=== PATIENT | female | born 1960 | race Caucasian/White ===

== ENCOUNTER 2023-03-20 07:31 | Outpatient (AMB) | payer OTHER, SELFPAY ==
[2023-03-20 07:35] VITALS: BP 106/68; PULSE 75; O2SAT 97; BMI 32.9
--- NOTE | 2023-03-20 07:35 | A.OFFPC_ITS ---
Vital Signs 03/20/23 07:35 Height 5 ft 5 in Weight 198 lb BMI 32.9 BP 106/68 Blood Pressure Location Lt brachial Position Sitting Pulse 75 Pulse Source Pulse Oximeter Pulse Oximetry (%) 97 Oxygen Delivery Method Room Air Intake Visit Reasons: Annual PE Intake Note: Pt is here today for PE. Allergies amoxicillin [Augmentin] Allergy (Unknown, Verified 03/20/23 07:37) sensitivity aspirin Allergy (Unknown, Verified 03/20/23 07:37) sensitivity clavulanic acid [Augmentin] Allergy (Unknown, Verified 03/20/23 07:37) sensitivity iodine Allergy (Unknown, Verified 03/20/23 07:37) topical burn skin and contrast caused rash Sulfa (Sulfonamide Antibiotics) Allergy (Unknown, Verified 03/20/23 07:37) hives rash on neck face ibuprofen Adverse Reaction (Verified 03/20/23 07:37) feels heat sensation Cefazolin in D5W Allergy (Unknown, Uncoded 03/20/23 07:37) hives Medication List - Last Reconciled 03/20/23 by Payal Torres MD ascorbate calcium (vitamin C) 500 mg PO DAILY cholecalciferol (vitamin D3) 50 mcg PO DAILY fluticasone propionate 50 mcg/actuation 0 mcg intranasal multivit with min-folic acid 0.4 mg (Adult One Daily Multivitamin) tabs PO omega-3 fatty acids (Fish Oil Concentrate) 1,000 mg PO DAILY pravastatin 20 mg PO DAILY Saccharomyces boulardii (Daily Probiotic (S. boulardii)) 250 mg PO DAILY Tobacco use date assessed: 03/20/23 Fall risk assessment: No Falls in past year Last assessed Fall Risk: 03/20/23 Dental Screening Dental Screen Date: 03/20/23 Did you have a dental visit in the last 12 months?: Yes Did you have a dental problem in the last 6 months where you did not have access to dental care?: No Was dental information given to patient?: Patient has dentist HPI Annual PE HPI Details Pt is for PE. PFSH Medical History (Updated 03/20/23 @ 08:30 by Payal Torres MD) Annual physical exam Bunion of great toe of right foot Cellulitis Hx of bone density study Hyperglycemia Hyperlipidemia Muscle strain Nephrolithiasis Osteoporosis Overweight Sleep apnea Surgical History (Updated 03/20/23 @ 08:18 by Payal Torres MD) H/O colonoscopy H/O left wrist surgery H/O prior ablation treatment History of lithotripsy History of surgery Family History Father HTN (hypertension) Pacemaker High cholesterol Mother No problems noted. Sister Myocardial infarction Social History Housing: House Alcohol intake: never Patient Tobacco Use Status: Never used Tobacco e-Cigarette/Vaping Use: Never Used Current occupational status: employed Cognitive needs: No Hearing needs: No Vision needs: Yes Questionnaire Thrive Questionnaire Date Thrive assessed: 08/20/22 AUDIT C Alcohol Use Questionnaire (AUDIT-C) 1. How often do you have a drink containing alcohol?: Never 3. How often do you have six or more drinks on one occasion?: Never Total Score: 0 VERO-7 AMB Questionnaire VERO-7 Date VERO - 7 assessed: 08/20/22 Source: Developed by Drs. Tremaine Gomez, Myriam Leiva, Prabhjot Braun and colleagues, with an educational terri from [employer]. Review of Systems Const All systems reviewed & are unremarkable except as noted in HPI and below Reports no additional complaints Eyes Reports no additional complaints ENT Reports no additional complaints Card Reports no additional complaints Resp Reports no additional complaints GI Reports no additional complaints Reports no additional complaints Physical exam (Primary Care) Vital Signs: Last Vital Signs Pulse 75 03/20/23 07:35 BP 106/68 03/20/23 07:35 Pulse Ox 97 03/20/23 07:35 Oxygen Delivery Method Room Air 03/20/23 07:35 BMI result Body Mass Index 32.9 Tobacco/Smoking Status: Tobacco use Status Tobacco use date assessed 03/20/23 03/20/23 07:42 Patient Tobacco Use Status Never used Tobacco 03/20/23 07:42 e-Cigarette/Vaping Use Never Used 03/20/23 07:42 Thrive Assessment: Date of Thrive Assessment Date Thrive assessed 08/20/22 03/20/23 07:42 Const General: no acute distress HENMT Head: Yes normal to inspection Ears: hearing grossly normal bilaterally Mouth: Normal oral and palatal mucosa present Throat: Yes posterior oropharynx normal Eyes General: appearance normal, both eyes and all related structures Neck Neck: Yes no lymphadenopathy and Yes supple Resp Effort & Inspection: normal respiratory effort Auscultation: clear to auscultation bilaterally Cardio Rhythm: regular rhythm Heart sounds: S1 normal heart sound present and S2 normal heart sound present GI Inspection: Yes normal to inspection Palpation (GI): Soft to palpation Auscultation: normal bowel sounds Assessment and Plan Assessment & Plan (1) Hyperglycemia: Code(s): R73.9 - Hyperglycemia, unspecified Plan: cont ADA dietm exercise, f/u 1 yr check A1C (2) Hyperlipidemia: Code(s): E78.5 - Hyperlipidemia, unspecified Plan: cont statin (3) Annual physical exam: Code(s): Z00.00 - Encounter for general adult medical examination without abnormal findings Plan: well balanced diet, exercise, weight loss discussed (4) Osteoporosis: Comment: DEXA 2018 [facility] T score -2.6 spine Code(s): M81.0 - Age-related osteoporosis without current pathological fracture (5) Status post partial colectomy: Comment: recurrent diverticulitis 2022, flex sigmoidoscopy negative, recheck colonoscopy in 5 yrs Code(s): Z90.49 - Acquired absence of other specified parts of digestive tract Orders: Orders Comprehensive [place]. Panel Fast 365 Days E55.9 - Vitamin D deficiency, unspecified, E78.5 - Hyperlipidemia, unspecified, M81.0 - Age-related osteoporosis without current pathological fracture, R73.9 - Hyperglycemia, unspecified, Z00.00 - Encounter for general adult medical examination without abnormal findings Hemoglobin A1c 365 Days E55.9 - Vitamin D deficiency, unspecified, E78.5 - Hyperlipidemia, unspecified, M81.0 - Age-related osteoporosis without current pathological fracture, R73.9 - Hyperglycemia, unspecified, Z00.00 - Encounter for general adult medical examination without abnormal findings TSH reflex Free T4 365 Days E55.9 - Vitamin D deficiency, unspecified, E78.5 - Hyperlipidemia, unspecified, M81.0 - Age-related osteoporosis without current pathological fracture, R73.9 - Hyperglycemia, unspecified, Z00.00 - Encounter for general adult medical examination without abnormal findings Vitamin D 25-OH Total 365 Days E55.9 - Vitamin D deficiency, unspecified, E78.5 - Hyperlipidemia, unspecified, M81.0 - Age-related osteoporosis without current pathological fracture, R73.9 - Hyperglycemia, unspecified, Z00.00 - Encounter for general adult medical examination without abnormal findings Microalbumin, Random (w Creat) 365 Days E55.9 - Vitamin D deficiency, unspecified, E78.5 - Hyperlipidemia, unspecified, M81.0 - Age-related osteoporosis without current pathological fracture, R73.9 - Hyperglycemia, unspecified, Z00.00 - Encounter for general adult medical examination without abnormal findings Complete Blood Count Man Dif 365 Days E55.9 - Vitamin D deficiency, unspecified, E78.5 - Hyperlipidemia, unspecified, M81.0 - Age-related osteoporosis without current pathological fracture, R73.9 - Hyperglycemia, unspecified, Z00.00 - Encounter for general adult medical examination without abnormal findings Coding Level of Care Code Est Pt Prev Care 40-64y(26329) Diagnoses Hyperglycemia R73.9 Hyperlipidemia E78.5 Annual physical exam Z00.00 Osteoporosis M81.0 Status post partial colectomy Z90.49
== END 2023-03-20 08:16 | disposition home or self-care (01) ==
PROVIDERS: PCP Internal Medicine; Visit Provider Internal Medicine
DX: Z00.00 Encounter for general adult medical examination without abnormal findings (principal); R73.9 Hyperglycemia, unspecified; E78.5 Hyperlipidemia, unspecified; Z90.49 Acquired absence of other specified parts of digestive tract; M81.0 Age-related osteoporosis without current pathological fracture
CPT/HCPCS: 99396

== ENCOUNTER 2023-09-16 09:13 | Outpatient (AMB) | payer OTHER, SELFPAY ==
[2023-09-16 09:22] VITALS: BP 118/72; PULSE 82; O2SAT 97; BMI 35.9
--- NOTE | 2023-09-16 09:22 | A.OFFPC_ITS ---
Vital Signs 09/16/23 09:22 Height 5 ft 5 in Weight 216 lb BMI 35.9 BP 118/72 Blood Pressure Location Lt brachial Position Sitting Pulse 82 Pulse Source Pulse Oximeter Pulse Oximetry (%) 97 Oxygen Delivery Method Room Air Intake Visit Reasons: [facility], [facility] in [facility] Intake Note: Pt is here today for a pre op visit. Pt is having L foot removal of hardware surgery on 10/06/23. Allergies amoxicillin [Augmentin] Allergy (Unknown, Verified 09/16/23 09:26) sensitivity aspirin Allergy (Unknown, Verified 09/16/23 09:26) sensitivity clavulanic acid [Augmentin] Allergy (Unknown, Verified 09/16/23 09:) sensitivity iodine Allergy (Unknown, Verified 09/16/23 09:) topical burn skin and contrast caused rash Sulfa (Sulfonamide Antibiotics) Allergy (Unknown, Verified 09/16/23 09:) hives rash on neck face ibuprofen Adverse Reaction (Verified 09/16/23 09:) feels heat sensation Cefazolin in D5W Allergy (Unknown, Uncoded 09/16/23 09:26) hives Medication List - Last Reconciled 09/16/23 by Payal Torres MD ascorbate calcium (vitamin C) 500 mg PO DAILY cholecalciferol (vitamin D3) 50 mcg PO DAILY docusate sodium (Stool Softener) 50 mg PO DAILY doxycycline hyclate 100 mg PO BID fluticasone propionate 50 mcg/actuation 0 mcg intranasal mupirocin 2% 1 appl topical BID pravastatin 20 mg PO DAILY Saccharomyces boulardii (Daily Probiotic (S. boulardii)) 250 mg PO DAILY Tobacco use date assessed: 09/16/23 Fall risk assessment: No Falls in past year Last assessed Fall Risk: 09/16/23 Dental Screening Dental Screen Date: 09/16/23 Did you have a dental visit in the last 12 months?: Yes Did you have a dental problem in the last 6 months where you did not have access to dental care?: No Was dental information given to patient?: Patient has dentist HPI [facility], [facility] in [facility] HPI Details Pt presents for pre op for L foot surgery. Pt c/o recurrent rash, diagnosed before as MRSA infection on upper chest and started taking Doxycycline 2 days ago. Patient denies fever chills any change in cosmetics or laundry detergent exposure to animals. Hyperlipidemia is controlled on pravastatin. Patient denies exertional chest pain shortness for breath palpitations. [facility] Medical History Muscle strain Cellulitis Bunion of great toe of right foot Overweight Hyperglycemia Hyperlipidemia Annual physical exam Nephrolithiasis Hx of bone density study Osteoporosis Sleep apnea Surgical History H/O colonoscopy H/O prior ablation treatment H/O left wrist surgery History of surgery History of lithotripsy Family History Father HTN (hypertension) Pacemaker High cholesterol Mother No problems noted. Sister Myocardial infarction Social History Housing: House Alcohol intake: never Patient Tobacco Use Status: Never used Tobacco e-Cigarette/Vaping Use: Never Used Current occupational status: employed Cognitive needs: No Hearing needs: No Vision needs: Yes Questionnaire Thrive Questionnaire Date Thrive assessed: 08/20/22 AUDIT C Alcohol Use Questionnaire (AUDIT-C) 1. How often do you have a drink containing alcohol?: Never 3. How often do you have six or more drinks on one occasion?: Never Total Score: 0 VERO-7 AMB Questionnaire VERO-7 Date VERO - 7 assessed: 08/20/22 Source: Developed by Drs. Tremaine Gomez, Myriam Leiva, Prabhjot Braun and colleagues, with an educational terri from [employer]. Review of Systems Const All systems reviewed & are unremarkable except as noted in HPI and below Reports no additional complaints Eyes Reports no additional complaints ENT Reports no additional complaints Card Reports no additional complaints Resp Reports no additional complaints GI Reports no additional complaints Reports no additional complaints Physical exam (Primary Care) Vital Signs: Last Vital Signs Pulse 82 09/16/23 09:22 BP 118/72 09/16/23 09:22 Pulse Ox 97 09/16/23 09:22 Oxygen Delivery Method Room Air 09/16/23 09:22 BMI result Body Mass Index 35.9 Tobacco/Smoking Status: Tobacco use Status Tobacco use date assessed 09/16/23 09/16/23 09:29 Patient Tobacco Use Status Never used Tobacco 09/16/23 09:29 e-Cigarette/Vaping Use Never Used 09/16/23 09:22 Thrive Assessment: Date of Thrive Assessment Date Thrive assessed 08/20/22 09/16/23 09:22 Const General: no acute distress HENMT Head: Yes normal to inspection General nose exam: Normal external nose present Face and sinus: Yes normal facial exam Neck Other: There is erythematous papular rash on the upper chest Neck: Yes no lymphadenopathy and Yes supple Resp Effort & Inspection: normal respiratory effort Auscultation: clear to auscultation bilaterally Cardio Rhythm: regular rhythm Heart sounds: S1 normal heart sound present and S2 normal heart sound present GI Inspection: Yes normal to inspection Palpation (GI): Soft to palpation Percussion: Yes normal to percussion Auscultation: normal bowel sounds Assessment and Plan Assessment & Plan (1) MRSA infection: Code(s): A49.02 - Methicillin resistant Staphylococcus aureus infection, unspecified site Plan: Continue doxycycline for 10 days and mupirocin nasal ointment was prescribed for 5 days for MRSA eradication. Patient was advised to use antibacterial soap or chlorhexidine body wash (2) Bunion of great toe of right foot: Comment: S/P SURGERY Code(s): M21.611 - Bunion of right foot Plan: Patient is medically cleared for right foot surgery hardware removal Medications: New mupirocin 2% Apply 0.5 gm in each nostril bid for 5 days 1 appl topical BID 15 grams 0RF doxycycline hyclate 100 mg PO BID 8 caps 0RF Coding Level of Care Code Est Pt Level 3 (40591) Diagnoses MRSA infection A49.02 Bunion of great toe of right foot M21.611
== END 2023-09-16 10:17 | disposition home or self-care (01) ==
PROVIDERS: PCP Internal Medicine; Visit Provider Internal Medicine
DX: A49.02 Methicillin resistant Staphylococcus aureus infection, unspecified site (principal); M21.611 Bunion of right foot
CPT/HCPCS: 99213

== ENCOUNTER 2024-02-17 06:32 | Outpatient (REF) | payer MEDICARE, SELFPAY ==
[2024-02-17 10:21] LABS: Baso%MD 0.4 %; Hematocrit 45.7 % (37.0-47.0); IG%MD 0.2 %; Mean Corpuscular HGB Conc 32.8 g/dl (31.0-35.0); Mean Corpuscular Hemoglobin 30.1 pg (27.0-33.0); Mean Corpuscular Volume 91.6 fL (80.0-98.0); Mean Platelet Volume 10.6 fL (9.4-12.3); Mono%MD 8.1 %; Neut%MD 41.3 %; Platelet Count 302 X10*3/uL (160-400); Red Blood Count 4.99 X10*6/uL (4.20-5.50); Red Cell Distribution Width 12.5 % (11.0-16.0); White Blood Count 5.3 X10*3/uL (4.8-10.8)
[2024-02-17 10:32] LABS: Estimated Average Glucose 120 mg/dL; Hemoglobin A1c % 5.8 % (<6.0)
[2024-02-17 10:59] LABS: Creatinine Urine 66.53 mg/dL
[2024-02-17 11:15] LABS: Alanine Aminotransferase 29 U/L (0-31); Albumin Level 4.4 g/dL (3.5-5.0); Alkaline Phosphatase 63 U/L (39-117); Anion Gap 14 (12-20); Aspartate Amino Transferase 19 U/L (5-31); Bilirubin Total 0.5 mg/dL (0.0-1.0); Blood Urea Nitrogen 11 mg/dL (9-16); Calcium 9.5 mg/dL (8.4-10.2); Carbon Dioxide 26 mmol/L (22-29); Chloride 106 mmol/L (96-108); Estimated Glomerular Filt Rate > 60; Glucose Fasting 124 mg/dL (60-99); Potassium 4.3 mmol/L (3.3-5.1); Sodium 142 mmol/L (135-145); TSH reflex Free T4 0.79 uIU/mL (0.32-4.0); Total Protein 8.1 g/dL (6.5-8.0); Vitamin D 25-OH Total 70.4 ng/mL (>30)
[2024-02-17 11:22] LABS: Band Neutrophils Percent 1 % (3-5); Basophils Abs Manual 0.1 X10*3/uL (0.0-0.2); Basophils Percent Manual 1 % (0-2); Eosinophils Absolute Manual 0.3 X10*3/uL (0.0-0.4); Eosinophils Percent Manual 6 % (0-4); Lymphocytes Absolute Manual 2.3 X10*3/uL (1.2-4.9); Lymphocytes Percent Manual 43 % (20-40); Monocytes Absolute Manual 0.4 X10*3/uL (0.1-1.2); Monocytes Percent Manual 8 % (2-11); Neutrophils Absolute Manual 2.2 X10*3/uL (2.0-8.3); Neutrophils Percent Manual 41 % (45-73)
[2024-02-17 11:24] LABS: Platelet Estimate NORMAL (NORMAL); Platelet Morphology Comment NORMAL; RBC Morphology NORMAL
== END 2024-02-17 06:33 | disposition home or self-care (01) ==
LOC: HO.HMGCLDS 06:32
PROVIDERS: PCP Internal Medicine; Visit Provider Internal Medicine
DX: Z00.00 Encounter for general adult medical examination without abnormal findings (principal); R73.9 Hyperglycemia, unspecified; E78.5 Hyperlipidemia, unspecified; M81.0 Age-related osteoporosis without current pathological fracture; E55.9 Vitamin D deficiency, unspecified
CPT/HCPCS: 36415; 80053; 82043; 82306; 82570; 83036; 84443; 85007; 85027

== ENCOUNTER 2024-03-22 06:11 | Outpatient (REF) | payer MEDICARE, SELFPAY ==
[2024-03-22 10:24] LABS: Alanine Aminotransferase 27 U/L (0-31); Albumin Level 4.3 g/dL (3.5-5.0); Alkaline Phosphatase 60 U/L (39-117); Anion Gap 13 (12-20); Aspartate Amino Transferase 21 U/L (5-31); Bilirubin Total 0.6 mg/dL (0.0-1.0); Blood Urea Nitrogen 15 mg/dL (9-16); Calcium 9.1 mg/dL (8.4-10.2); Carbon Dioxide 26 mmol/L (22-29); Chloride 106 mmol/L (96-108); Cholesterol 191 mg/dL (<200); Estimated Glomerular Filt Rate > 60; Glucose Fasting 117 mg/dL (60-99); HDL Cholesterol 42 mg/dL (>40); LDL Cholesterol Calculated 110 mg/dL (<100); Potassium 4.5 mmol/L (3.3-5.1); Sodium 140 mmol/L (135-145); Total Protein 7.7 g/dL (6.5-8.0); Triglycerides 195 mg/dL (<150)
== END 2024-03-22 06:12 | disposition home or self-care (01) ==
LOC: HO.HMGCLDS 06:11
PROVIDERS: PCP Internal Medicine; Visit Provider Internal Medicine
DX: Z00.00 Encounter for general adult medical examination without abnormal findings (principal); E78.5 Hyperlipidemia, unspecified
CPT/HCPCS: 36415; 80053; 80061

== ENCOUNTER 2024-03-25 07:34 | Outpatient (AMB) | payer MEDICARE, SELFPAY ==
[2024-03-25 07:36] VITALS: BP 118/72; PULSE 71; O2SAT 96; BMI 33.9
--- NOTE | 2024-03-25 07:36 | MHC.PC.OV ---
Vital Signs 03/25/24 07:36 Height 5 ft 5 in Weight 204 lb BMI 33.9 BP 118/72 Blood Pressure Location Lt brachial Position Sitting Pulse 71 Pulse Source Pulse Oximeter Pulse Oximetry (%) 96 Oxygen Delivery Method Room Air Intake Visit Reasons: Annual PE - see comment Intake Note: Pt is here today for PE. Allergies amoxicillin [Augmentin] Allergy (Unknown, Verified 03/25/24 07:47) sensitivity aspirin Allergy (Unknown, Verified 03/25/24 07:47) sensitivity clavulanic acid [Augmentin] Allergy (Unknown, Verified 03/25/24 07:47) sensitivity iodine Allergy (Unknown, Verified 03/25/24 07:47) topical burn skin and contrast caused rash Sulfa (Sulfonamide Antibiotics) Allergy (Unknown, Verified 03/25/24 07:47) hives rash on neck face ibuprofen Adverse Reaction (Verified 03/25/24 07:47) feels heat sensation Cefazolin in D5W Allergy (Unknown, Uncoded 03/25/24 07:47) hives Medication List - Last Reconciled 03/25/24 by Payal Torres MD ascorbate calcium (vitamin C) 500 mg PO DAILY cholecalciferol (vitamin D3) 50 mcg PO DAILY docusate sodium (Stool Softener) 50 mg PO DAILY fluticasone propionate 50 mcg/actuation 0 mcg intranasal mupirocin 2% 1 appl topical BID pravastatin 20 mg PO DAILY Saccharomyces boulardii (Daily Probiotic (S. boulardii)) 250 mg PO DAILY Tobacco use date assessed: 03/25/24 Fall risk assessment: No Falls in past year Last assessed Fall Risk: 03/25/24 Dental Screening Dental Screen Date: 03/25/24 Did you have a dental visit in the last 12 months?: Yes Did you have a dental problem in the last 6 months where you did not have access to dental care?: No Was dental information given to patient?: Patient has dentist HPI Annual PE - see comment HPI Details Pt presents for PE. PFSH Medical History (Updated 03/25/24 @ 08:11 by Payal Torres MD) Muscle strain Cellulitis Bunion of great toe of right foot Overweight Hyperglycemia Hyperlipidemia Annual physical exam Nephrolithiasis Hx of bone density study Osteoporosis Sleep apnea Surgical History H/O colonoscopy H/O prior ablation treatment H/O left wrist surgery History of surgery History of lithotripsy Family History Father HTN (hypertension) Pacemaker High cholesterol Mother No problems noted. Sister Myocardial infarction Social History Housing: House Alcohol intake: never Patient Tobacco Use Status: Never used Tobacco e-Cigarette/Vaping Use: Never Used service: No Current occupational status: employed Cognitive needs: No Hearing needs: No Vision needs: Yes Questionnaire PHQ-9 Over the last 2 weeks, how often have you been bothered by any of the following problems? 1. Little interest or pleasure in doing things: not at all 2. Feeling down, depressed, or hopeless: not at all 3. Trouble falling or staying asleep, or sleeping too much: not at all 4. Feeling tired or having little energy: not at all 5. Poor appetite or overeating: not at all 6. Feeling bad about yourself - or that you are a failure or have let yourself or your family down: not at all 7. Trouble concentrating on things, such as reading the newspaper or watching television: not at all 8. Moving or speaking so slowly that other people could have noticed. Or the opposite - being so fidgety or restless that you have been moving around a lot more than usual: not at all 9. Thoughts that you would be better off or of hurting yourself in some way: not at all Total score: 0 Depression Screening Interpretation: Negative Depression Screening Done: Yes Source: Developed by Drs. Tremaine Gomez, Myriam Leiva, Prabhjot Braun and colleagues, with an educational terri from [employer]. Thrive Questionnaire Date Thrive assessed: 03/25/24 I am a: Patient What is your living situation today?: I have a steady place to live Within the past 12 months, did the food you bought not last and you didn't have the money to get more?: Never true Within the past 12 months, did you worry whether your food would run out before you got money to buy more?: Never true Do you have trouble paying for medicines?: No Do you have trouble getting transportation to medical appointments?: No Do you have trouble paying your heating and electricity bill?: No Do you have trouble taking care of your child, family member or friend?: No Do you have trouble with day-to-day activities such as bathing, preparing meals, shopping, managing finances, etc.?: No Are you currently unemployed and looking for a job?: No Are you interested in more education?: No Please select the resources that you would like help with: None THRIVE Score: 0 VERO-7 AMB Questionnaire VERO-7 Date VERO - 7 assessed: 03/25/24 Feeling nervous, anxious, or on edge: 0 = Not at all Not being able to stop or control worryin = Not at all Worrying too much about different things: 0 = Not at all Trouble relaxin = Not at all Being so restless that it is hard to sit still: 0 = Not at all Becoming easily annoyed or irritable: 0 = Not at all Feeling afraid as if something awful might happen: 0 = Not at all Total VERO-7 score (0-4 normal; 5-9 mild; 10-14 moderate; 15-21 severe): 0 Source: Developed by Drs. Tremaine Gomez, Myriam Leiva, Prabhjot Braun and colleagues, with an educational terri from [employer]. VERO-7 Assessment Billing VERO-7 Assessment Tool: VERO-7 Assessment 12367 Review of Systems Const All systems reviewed & are unremarkable except as noted in HPI and below Eyes Reports no additional complaints ENT Reports no additional complaints Card Reports no additional complaints Resp Reports no additional complaints GI Reports no additional complaints Reports no additional complaints Musc Reports no additional complaints Physical exam (Primary Care) Vital Signs: Last Vital Signs Pulse 71 03/25/24 07:36 BP 118/72 03/25/24 07:36 Pulse Ox 96 03/25/24 07:36 Oxygen Delivery Method Room Air 03/25/24 07:36 BMI result Body Mass Index 33.9 Tobacco/Smoking Status: Tobacco use Status Tobacco use date assessed 03/25/24 03/25/24 07:50 Patient Tobacco Use Status Never used Tobacco 03/25/24 07:36 e-Cigarette/Vaping Use Never Used 03/25/24 07:36 PHQ-9: PHQ-9 Score PHQ-9: Total score 0 03/25/24 07:51 Depression Screening Interpretation: Negative Thrive Assessment: Date of Thrive Assessment Date Thrive assessed 03/25/24 03/25/24 07:36 Const General: no acute distress HENMT Head: Yes normal to inspection Ears: hearing grossly normal bilaterally General nose exam: Normal external nose present Face and sinus: Yes normal facial exam Mouth: Normal oral and palatal mucosa present Throat: Yes posterior oropharynx normal Eyes General: appearance normal, both eyes and all related structures Neck Neck: Yes supple Resp Effort & Inspection: normal respiratory effort Auscultation: clear to auscultation bilaterally Cardio Rhythm: regular rhythm Heart sounds: S1 normal heart sound present and S2 normal heart sound present GI Inspection: Yes normal to inspection Palpation (GI): Soft to palpation Percussion: Yes normal to percussion Auscultation: normal bowel sounds Assessment and Plan Assessment & Plan (1) Hyperlipidemia: Code(s): E78.5 - Hyperlipidemia, unspecified Plan: cont Pravastatin (2) Annual physical exam: Code(s): Z00.00 - Encounter for general adult medical examination without abnormal findings Plan: Well-balanced diet regular exercise weight loss discussed with the patient. She is up-to-date with the mammogram, colonoscopy (3) Osteoporosis: Comment: DEXA 2018 [facility] T score -2.6 spine, took Fosamax , Forteo, Prolia last dose 8 yrs, DEXA q 2 yrs f/u Endo Code(s): M81.0 - Age-related osteoporosis without current pathological fracture Plan: Continue vitamin-D supplement follow-up with endocrinology at [facility] (4) Hyperglycemia: Code(s): R73.9 - Hyperglycemia, unspecified Plan: A1c is 5.8, ADA diet increase exercise weight loss discussed with the patient. Recheck A1c in 6 months Orders: Orders Comprehensive [place]. Panel Fast 1 Year E78.5 - Hyperlipidemia, unspecified, R73.9 - Hyperglycemia, unspecified, Z00.00 - Encounter for general adult medical examination without abnormal findings Lipid Panel 1 Year E78.5 - Hyperlipidemia, unspecified, R73.9 - Hyperglycemia, unspecified, Z00.00 - Encounter for general adult medical examination without abnormal findings Hemoglobin A1c 6 Months E78.5 - Hyperlipidemia, unspecified, R73.9 - Hyperglycemia, unspecified Hemoglobin A1c 1 Year E78.5 - Hyperlipidemia, unspecified, R73.9 - Hyperglycemia, unspecified, Z00.00 - Encounter for general adult medical examination without abnormal findings Complete Blood Count Auto Diff 1 Year E78.5 - Hyperlipidemia, unspecified, R73.9 - Hyperglycemia, unspecified, Z00.00 - Encounter for general adult medical examination without abnormal findings Microalbumin, Random (w Creat) 1 Year E78.5 - Hyperlipidemia, unspecified, R73.9 - Hyperglycemia, unspecified, Z00.00 - Encounter for general adult medical examination without abnormal findings Lipid Panel 6 Months E78.5 - Hyperlipidemia, unspecified, R73.9 - Hyperglycemia, unspecified Coding Level of Care Code Est Pt Prev Care >65y(88188) Diagnoses Hyperlipidemia E78.5 Annual physical exam Z00.00 Osteoporosis M81.0 Hyperglycemia R73.9 Additional Codes VERO-7 Assessment Billing - VERO-7 Assessment Tool: VERO-7 Assessment 50124 ([id number])
== END 2024-03-25 08:28 | disposition home or self-care (01) ==
PROVIDERS: PCP Internal Medicine; Visit Provider Internal Medicine
DX: Z00.00 Encounter for general adult medical examination without abnormal findings (principal); E78.5 Hyperlipidemia, unspecified; M81.0 Age-related osteoporosis without current pathological fracture; R73.9 Hyperglycemia, unspecified
CPT/HCPCS: 99397

== ENCOUNTER 2024-07-22 14:00 | Outpatient (AMB) | payer MEDICARE, SELFPAY ==
[2024-07-22 14:19] VITALS: BP 118/74; PULSE 94; O2SAT 98; BMI 37.4
--- NOTE | 2024-07-22 14:19 | MHC.PC.OV ---
Vital Signs 07/22/24 14:19 Height 5 ft 5 in Weight 225 lb BMI 37.4 BP 118/74 Blood Pressure Location Lt brachial Position Sitting Pulse 94 Pulse Source Pulse Oximeter Pulse Oximetry (%) 98 Oxygen Delivery Method Room Air Intake Visit Reasons: MRSA Intake Note: Pt is here today for a sick visit. Pt c/o MRSA. Allergies amoxicillin [Augmentin] Allergy (Unknown, Verified 07/22/24 14:32) sensitivity aspirin Allergy (Unknown, Verified 07/22/24 14:32) sensitivity clavulanic acid [Augmentin] Allergy (Unknown, Verified 07/22/24 14:32) sensitivity iodine Allergy (Unknown, Verified 07/22/24 14:32) topical burn skin and contrast caused rash Sulfa (Sulfonamide Antibiotics) Allergy (Unknown, Verified 07/22/24 14:32) hives rash on neck face mupirocin Allergy (Verified 07/22/24 14:33) Rash ibuprofen Adverse Reaction (Verified 07/22/24 14:32) feels heat sensation Cefazolin in D5W Allergy (Unknown, Uncoded 07/22/24 14:32) hives Medication List - Last Reconciled 07/22/24 by Payal Torres MD ascorbate calcium (vitamin C) 500 mg PO DAILY cholecalciferol (vitamin D3) 50 mcg PO DAILY docusate sodium (Stool Softener) 50 mg PO DAILY doxycycline monohydrate 100 mg PO BID fluticasone propionate 50 mcg/actuation 0 mcg intranasal pravastatin 20 mg PO DAILY Saccharomyces boulardii (Daily Probiotic (S. boulardii)) 250 mg PO DAILY Tobacco use date assessed: 07/22/24 Dental Screening Dental Screen Date: 03/25/24 HPI MRSA HPI Details Patient presents complaining of a rash on her left side of the neck. She had similar rash last year and was treated for MRSA. Maribel rash rule out occurred 2 weeks ago patient went to urgent Care was prescribed mupirocin cream and doxycycline. Patient noticed the rash getting worse and skin becoming itchy and prickly on her neck. She denies fever chills difficulty swallowing or breathing [facility] Medical History Muscle strain Cellulitis Bunion of great toe of right foot Overweight Hyperglycemia Hyperlipidemia Annual physical exam Nephrolithiasis Hx of bone density study Osteoporosis Sleep apnea Surgical History H/O colonoscopy H/O prior ablation treatment H/O left wrist surgery History of surgery History of lithotripsy Family History Father HTN (hypertension) Pacemaker High cholesterol Mother No problems noted. Sister Myocardial infarction Social History Housing: House Alcohol intake: never Patient Tobacco Use Status: Never used Tobacco e-Cigarette/Vaping Use: Never Used service: No Current occupational status: employed Cognitive needs: No Hearing needs: No Vision needs: Yes Questionnaire Thrive Questionnaire Date Thrive assessed: 03/25/24 I am a: Patient What is your living situation today?: I have a steady place to live Within the past 12 months, did the food you bought not last and you didn't have the money to get more?: Never true Within the past 12 months, did you worry whether your food would run out before you got money to buy more?: Never true Do you have trouble paying for medicines?: No Do you have trouble getting transportation to medical appointments?: No Do you have trouble paying your heating and electricity bill?: No Do you have trouble taking care of your child, family member or friend?: No Do you have trouble with day-to-day activities such as bathing, preparing meals, shopping, managing finances, etc.?: No Are you currently unemployed and looking for a job?: No Are you interested in more education?: No Please select the resources that you would like help with: None Currently or been in a relationship where the following occur: No concerns reported THRIVE Score: 0 AUDIT C Alcohol Use Questionnaire (AUDIT-C) 1. How often do you have a drink containing alcohol?: Never Total Score: 0 VERO-7 AMB Questionnaire VERO-7 Date VERO - 7 assessed: 03/25/24 Feeling nervous, anxious, or on edge: 0 = Not at all Not being able to stop or control worryin = Not at all Worrying too much about different things: 1 = Several days Trouble relaxin = Several days Being so restless that it is hard to sit still: 0 = Not at all Becoming easily annoyed or irritable: 1 = Several days Feeling afraid as if something awful might happen: 0 = Not at all Total VERO-7 score (0-4 normal; 5-9 mild; 10-14 moderate; 15-21 severe): 3 Source: Developed by Drs. Tremaine Gomez, Myriam Leiva, Prabhjot Braun and colleagues, with an educational terri from [employer]. Review of Systems Const All systems reviewed & are unremarkable except as noted in HPI and below Eyes Reports no additional complaints ENT Reports no additional complaints Card Reports no additional complaints Resp Reports no additional complaints GI Reports no additional complaints Reports no additional complaints Physical exam (Primary Care) Vital Signs: Last Vital Signs Pulse 94 07/22/24 14:19 BP 118/74 07/22/24 14:19 Pulse Ox 98 07/22/24 14:19 Oxygen Delivery Method Room Air 07/22/24 14:19 BMI result Body Mass Index 37.4 Tobacco/Smoking Status: Tobacco use Status Tobacco use date assessed 07/22/24 07/22/24 14:36 Patient Tobacco Use Status Never used Tobacco 07/22/24 14:19 e-Cigarette/Vaping Use Never Used 07/22/24 14:19 Thrive Assessment: Date of Thrive Assessment Date Thrive assessed 03/25/24 07/22/24 14:19 Currently or been in a relationship where the following occur: No concerns reported Const General: no acute distress HENMT Head: Yes normal to inspection Throat: Yes posterior oropharynx normal Eyes General: appearance normal, both eyes and all related structures Neck Other: There is a pinkish discoloration on the left side of the neck no active rash present Neck: Yes supple Resp Effort & Inspection: normal respiratory effort Auscultation: clear to auscultation bilaterally Cardio Rhythm: regular rhythm Heart sounds: S1 normal heart sound present and S2 normal heart sound present Coding Level of Care Code Est Pt Level 3 (00261) Diagnoses Allergic reaction T78.40XA Assessment & Plan Assessment & Plan (1) Allergic reaction: Comment: to mupirocin Code(s): T78.40XA - Allergy, unspecified, initial encounter Category: Medical Plan: Supportive care discussed with the patient for any recurrent neck cellulitis patient will be treated with doxycycline only Medications: New doxycycline monohydrate 100 mg PO BID 14 caps 0RF
== END 2024-07-22 15:05 | disposition home or self-care (01) ==
PROVIDERS: PCP Internal Medicine; Visit Provider Internal Medicine
DX: T78.40XA Allergy, unspecified, initial encounter (principal)

== ENCOUNTER → 2024-07-22 14:00 | Outpatient (BNVA) | payer MEDICARE, SELFPAY | PROVIDERS: PCP Internal Medicine; Visit Provider Internal Medicine | DX: T78.40XA Allergy, unspecified, initial encounter (principal) | CPT/HCPCS: 99212 ==